=== PATIENT | female | born 1970 | race African-American/Black ===

== ENCOUNTER 2022-09-12 09:09 | Day surgery (SDC) | payer OTHER ==
[2022-08-29 10:21] VITALS: BMI 40.2
[2022-09-12] MEDS ORDERED: BUPIVACAINE LIPOSOME/PF (EXPAREL) 266 MG/20 ML VIAL ONE (10:35)
[2022-09-12] MEDS ORDERED: BUPIVACAINE HCL/PF 0.5% (5MG/ML) 10 ML VIAL ONE (10:35)
[2022-09-12] MEDS ORDERED: MIDAZOLAM HCL 2 MG/2 ML SINGLE DOSE VIAL ONE ×2 (10:35→11:39)
[2022-09-12] MEDS ORDERED: ACETAMINOPHEN INJECTION 100 ML IVPB ONE (10:35)
[2022-09-12] MEDS ORDERED: DEXAMETHASONE SOD PHOSPHATE/PF 10 MG/ML SDV ONE (10:41)
[2022-09-12] MEDS ORDERED: ONDANSETRON 4 MG/2 ML VIAL IVPUSH PRN (11:10)
[2022-09-12] MEDS ORDERED: ACETAMINOPHEN 325 MG TABLET (FP) PO PRN (11:10)
[2022-09-12] MEDS ORDERED: oxyCODONE HCL 5 MG TABLET PO PRN ×2 (11:10)
[2022-09-12] MEDS ORDERED: LACTATED RINGERS SOLUTION 1,000 ML IV SCH (11:15)
[2022-09-12] MEDS ORDERED: KETAMINE HCL 200 MG/20 ML VIAL ONE (11:39)
[2022-09-12] MEDS ORDERED: PROPOFOL 40 ML ONE (11:39)
[2022-09-12] MEDS ORDERED: KETOROLAC TROMETHAMINE 30 MG/1 ML VIAL ONE ×2 (11:39→11:54)
[2022-09-12] MEDS ORDERED: DEXAMETHASONE SOD PHOSPHATE 4 MG/1 ML VIAL ONE (11:54)
[2022-09-12] MEDS ORDERED: ceFAZolin SODIUM 1 GM VIAL ONE ×2 (11:54)
[2022-09-12] MEDS ORDERED: ONDANSETRON 4 MG/2 ML VIAL ONE ×2 (11:54)
[2022-09-12] MEDS ORDERED: BUPIVACAINE HCL/EPINEPHRINE/PF 30 ML VIAL IJ ONE (11:57)
[2022-09-12] MEDS ORDERED: PROPOFOL 20 ML ONE ×5 (12:05→13:52)
[2022-09-12] MEDS ORDERED: FAMOTIDINE 20 MG PREMIXED IVPB IVPB ONE (15:15)
[2022-09-12] MEDS ORDERED: FAMOTIDINE 20 MG/50 ML IVPB 20 MG/50 ML MG IVPB ONE (15:18)
[2022-09-12] MEDS ORDERED: MAG HYDROX/AL HYDROX/SIMETH 30 ML UNIT-DOSE CUP PO ONE (15:18)
[2022-09-12 16:14] VITALS: TEMP 97.7
[2022-09-12 17:10] VITALS: BP 127/68; PULSE 78; RESP 18
== END 2022-09-12 17:12 | disposition home or self-care (01) ==
LOC: FASU 09:09
PROVIDERS: ATTEND Orthopaedic Surgery
PROC: 0LS44ZZ Reposition Left Upper Arm Tendon, Percutaneous Endoscopic Approach (ICD-10-PCS; principal; 2022-09-12 12:08)
PROC: 0RNK4ZZ Release Left Shoulder Joint, Percutaneous Endoscopic Approach (ICD-10-PCS; 2022-09-12 12:08)
DX: S45.012 Laceration of axillary artery, left side (principal); M75.22 Bicipital tendinitis, left shoulder; M75.52 Bursitis of left shoulder; M65.822 Other synovitis and tenosynovitis, left upper arm; S43.432D Superior glenoid labrum lesion of left shoulder, subsequent encounter; M75.02 Adhesive capsulitis of left shoulder; X58.XXXD Exposure to other specified factors, subsequent encounter
CPT/HCPCS: 84703; 94760; C1713